=== PATIENT | male | born 1965 | race Caucasian/White ===

== ENCOUNTER → 2017-09-09 | Outpatient (CLI) | payer OTHER ==
[~2017-09-09] MED LIST: MEDROLDOSEPACK PO; PREDNISONE50 MG PO
== END ==
LOC: M.RAD 10:20
DX: R05 Cough (principal); R06.09 Other forms of dyspnea; I10 Essential (primary) hypertension; F17.200 Nicotine dependence, unspecified, uncomplicated

== ENCOUNTER 2019-01-24 10:48 | Emergency (ER) | payer OTHER ==
[~2019-01-24] VITALS: Ht 182.9 cm; Wt 83.5 kg
[2019-01-24] MEDS ORDERED: CIALIS5 MG PO (11:07)
[2019-01-24] MEDS ORDERED: BENICAR40 MG PO (11:07)
[2019-01-24] MEDS ORDERED: FLONASE 0.05%50 MCG NASAL (11:07)
[2019-01-24] MEDS ORDERED: BACTRIM DS TAB1 EACH PO (11:52)
[2019-01-24] MEDS ORDERED: KEFLEX500 M1 PO (11:52)
[2019-01-24 12:03] VITALS: BP 132/78
== END 2019-01-24 12:10 | disposition home or self-care (01) ==
LOC: M.ERS 10:48
DX: N49.2 Inflammatory disorders of scrotum (principal); L02.215 Cutaneous abscess of perineum; I10 Essential (primary) hypertension; F17.210 Nicotine dependence, cigarettes, uncomplicated; Z88.1 Allergy status to other antibiotic agents; Z88.5 Allergy status to narcotic agent